=== PATIENT | female | born 1955 | race Two or more races ===

== ENCOUNTER 2025-09-21 21:27 | Emergency (ER) | payer MEDICARE, MEDICAID ==
[~2025-09-21] VITALS: Ht 165.1 cm; Wt 56.0 kg
[2025-09-21 21:40] VITALS: PULSE 85; RESP 16; O2SAT 97
--- NOTE | 2025-09-21 22:03 | DVH ---
CLINICAL INDICATION: FALL TECHNIQUE: 3 views XY R KNEE 3V XRAY Comparison: None FINDINGS: No acute fracture or dislocation. Mild tricompartmental osteoarthrosis. Small distal quadriceps enth esophyte. No evident joint effusion. Unremarkable soft tissues. IMPRESSION: 1. No acute osseous abnormality of the right knee.
--- NOTE | 2025-09-21 22:07 | DVH ---
CLINICAL HISTORY: FALL TECHNIQUE: Helical scanning was performed of the head from the skull base to the vertex. Multiplanar reconstructions were performed. This exam was performed according to our departmental dose optimizat ion program. Up-to-date CT equipment and radiation dose reduction techniques are utilized as appropri ate. CTDI 10.5 DLP 250 COMPARISON: None FINDINGS: There is no evidence for acute intracranial hemorrhage, acute ischemic changes, or mass. There is no hydrocephalus. There is no effacement of the cerebral sulci and basal subarachnoid cisterns. The solis -white matter differentiation is well maintained. There is a small to moderate size mixed density subdural hematoma along right cerebral convexity, anthony suring up to 10 mm thickness on coronal images. There is a 2 mm subdural hematoma along the left cere bral convexity. There is trace subarachnoid hemorrhage of the right frontoparietal junction, best see n on image 36 series 2. There is no significant midline shift. The imaged paranasal sinuses are clear. There are diffuse sclerotic lesions. There are a few scattere d nonspecific parenchymal calcifications. IMPRESSION: Small to moderate right and miniscule left cerebral convexity subdural hematomas. No significant midl ine shift. Trace right frontoparietal junction subarachnoid hemorrhage. Diffuse sclerotic lesions, suspect osseous metastatic disease. FINDINGS AND INTERPRETATION DISCUSSED WITH DR ALVAREZ AT DATE AND TIME 09/21/2025 10:02 PM
[2025-09-21] MEDS: MANNITOL 20% SOLN 100 gm/500ml 350 ML IV ONE (22:15)
[2025-09-21] MEDS: LABETALOL HCL 20 MG/4 ML VL IV PRN (22:17)
--- NOTE | 2025-09-21 22:25 | DVH ---
EXAM: CT CERVICAL WITHOUT CONTRAST HISTORY: FALL COMPARISON: None CTDIvol 49 mGy, DLP 947 mGy*cm. TECHNIQUE: Multiple axial CT images of the spine were obtained using bone algorithm. Axial and mederos l reformatting was done. Bone and soft tissue windows were reviewed. FINDINGS: No evidence of vertebral fracture or compresison deformity. Essentially diffuse heterogeneous sclerosis throughout all imaged osseous structures. Normal alignmen t of the craniocervical junction with mild degenerative change. Straightening of normal lordotic curv ature with [id number] multilevel spondylosis most pronounced at C5-C6. No acute finding of the imaged neck soft tissues. Numerous reticulonodular opacities throughout the i mike lung apices. No obvious lymphadenopathy. Partially imaged right IJ catheter/chest port. IMPRESSION: 1. No acute finding of the cervical spine. 2. Extensive osseous and probable pulmonary metastatic disease.
[2025-09-21] MEDS: levETIRAcetam 1000 mg/100ml 100 ML IV ONE (22:26)
[2025-09-21 22:37] LABS: Base Excess -0.9 mmol/L (-2.0-3.0)
[2025-09-21 22:40] VITALS: PULSE 85
--- NOTE | 2025-09-21 22:50 | ED.PDOC ---
History of Present Illness HPI Comments 70 y/o F is khjorqr-[id number] relative for c/c of right, frontal headache and right forearm and knee bruising s/p mechanical fall and injury. Per relative, patient is reported to have sustained an unwitnessed fall injury at 2049, this evening. Patient was found sitting on the floor c/o symptoms after being suspected on tripping on an object and falling forward and injuring her head and forearm and knee when walking into another room at home. Patient did not lose consciousness but was unable to walk or recall events then. No reported history of previous injuries or current blood thinner use aside from occasional low dose ASA use. Additional significant history of advanced metastatic brain cancer, arthritis, Alzheimer's dementia, diabetes with neuropathy, fibromyalgia, and thrombocytopenia. Patient is also reported to have, recently, moved to area from [place], [place], where she usually receive treatment for her cancer at local hospital facility there. Last imaging study for metastatic brain cancer was reported to have been been a month ago, with show cancer advancing. Patient denies any further acute injuries or symptoms at this time. REVIEW OF SYSTEMS: General: No fever, no chills, or fatigue HEENT: No sore throat, no earache, no congestion, no neck pain. Cardiac: No chest pain. No palpitations. Lungs: No shortness of breath, no cough. GI: No nausea, no vomiting, no diarrhea, no constipation, no abdominal pain : No dysuria, frequency, or urgency. No hematuria. Musculoskeletal: No joint pain , no joint swelling, no extremity edema. Skin: Bruising to right forearm and knee. No rash, no itching. Neuro: Headache, no dizziness, no weakness PHYSICAL EXAM: General: Awake, alert and oriented. No acute distress. Skin: Skin in warm, dry and intact. Appropriate color for ethnicity. HEENT: The head is normocephalic and atraumatic. Conjunctivae are clear without exudates or hemorrhage. Sclera is non-icteric. EOM are intact. PERRLA. No signs of nystagmus. Eyelids are normal in appearance without swelling or lesions. Oral mucosa is pink and moist Neck: The neck is supple with normal range of motion. No JVD. Cardiac: Heart rate and rhythm are normal. No murmurs, gallops, or rubs are auscultated. Respiratory: No signs of respiratory distress. Lung sounds are clear in all lobes bilaterally without rales, rhonchi, or wheezes. Abdominal: Abdomen is soft, non-tender without distention, guarding or rigidity. Bowel sounds are present and normoactive in all four quadrants. Extremities: Upper and lower extremities are atraumatic in appearance without deformity or edema. Neurological: The patient is awake, alert and oriented to person, place, and time with normal speech. Speech is clear. There is no facial asymmetry. Strength sensations are intact, bilaterally. Psychiatric: Appropriate mood and affect. Good judgement and insight. Chief Complaint: Fall Injury Time Seen by MD: 22:00 Reviewed Notes: Nurses Notes, Medications, Allergies Allergies: Coded Allergies: NSAIDs (Verified Allergy, Unknown, 09/21/25) Information Source: Patient, Relative Mode of Arrival: Wheelchair Severity: Moderate Timing: Hours Duration: Since onset Prehospital treatment: None Past Medical History PAST MEDICAL HISTORY: Arthritis, Cancer (Metastatic brain cancer), Dementia (Alzheimer's), DM (With neuropathy) Past Medical History (Other): Fibromyalgia Thrombocytopenia Surgical History: Denies all surgeries Family History Family History: Unknown Social History Smoker: Non-Smoker Alcohol: Denies ETOH Use Drugs: Denies Drug Use Lives In: Home Was a procedure done? Was a procedure done?: No Differential Dx Considerations may include: Differential diagnoses considered include but are not limited to temporal arteritis, acute angle closure glaucoma, encephalitis, bacterial meningitis, carbon monoxide poisoning, posttraumatic headache, SAH, subdural hematoma, cervical artery dissection, venous sinus thrombosis, CVA, migraine headache, cluster headache, tension headache, TMJ disorder, frontal sinusitis, cervical spondylosis, intracranial mass, pituitary apoplexy. X-Ray, Labs, Meds, VS Vital Signs Date Time Temp Pulse Resp B/P (MAP) Pulse Ox O2 Delivery O2 Flow Rate FiO2 09/21/25 23:22 98.2 85 13 118/76 (90) 95 98.2 09/21/25 22:40 85 Room Air* 0 21 09/21/25 21:40 98.1 82 16 113/47 (69) 96 98.1 09/21/25 21:40 85 16 97 Room Air* 0 21 09/21/25 21:30 98.3 18 16 138/87 98 98.3 Lab Test 09/21/25 22:40 09/21/25 22:32 Range/Units POC Glucose 162 H 70-106 mg/dl Blood Gas Specimen Type Arterial Blood Gas Sample Site Right radial Blood Gas Patient Temperature 37.0 Arterial Blood Date Drawn [id number] Arterial Blood pH 7.430 7.350-7.450 Arterial Blood Partial Pressure CO2 35.3 32.0-45.0 mmHg Arterial Blood Partial Pressure O2 66.6 L 83.0-108.0 mmHg Arterial Blood HCO3 22.9 21.0-28.0 mmol/L Arterial Blood Oxygen Saturation 91.9 L 94.0-98.0 % Arterial Blood Base Excess -0.9 -2.0-3.0 mmol/L Arterial Blood Oxyhemoglobin 91.0 L 94.0-98.0 % Arterial Blood Carboxyhemoglobin 0.6 0.5-1.5 % Arterial Blood Methemoglobin 0.4 0.0-1.5 % Fabián Test Yes Blood Gas Total Hemoglobin 12.90 12.0-16.0 g/dL Blood Gas Modality Room air FiO2 % 21.0 Current Medications Medications (Trade) Dose Ordered Sig/Fredy Route Start Time Stop Time Status Last Admin Levetiracetam 100 ml @ 400 mls/hr ONCE ONCE IV 09/21/25 22:15 09/21/25 22:29 DC 09/21/25 22:26 Acetaminophen (Ofirmev) 1,000 mg ONCE ONCE IV 09/21/25 23:00 09/21/25 23:02 DC 09/21/25 23:04 [place] [address] Ph: [phone] DIAGNOSTIC IMAGING Diagnostic Imaging Report : [id number] Signed PATIENT: COURTNEY CASTILLO ACCT: [id number] UNIT: [id number] : 1955 LOC: ER ROOM / BED: / AGE / SEX: 70 / F ADM STATUS: REG ER SERVICE 41 ORDERING PHYSICIAN: ER PROCEDURE(s): CS2 - CERVICAL WITHOUT CONTRAST REASON: FALL ORDER NUMBER(s): [id number], ACCESSION NUMBER(s): [id number] EXAM: CT CERVICAL WITHOUT CONTRAST HISTORY: FALL COMPARISON: None CTDIvol 49 mGy, DLP 947 mGy*cm. TECHNIQUE: Multiple axial CT images of the spine were obtained using bone algorithm. Axial and coronal reformatting was done. Bone and soft tissue windows were reviewed. FINDINGS: No evidence of vertebral fracture or compresison deformity. Essentially diffuse heterogeneous sclerosis throughout all imaged osseous structures. Normal alignment of the craniocervical junction with mild degenerative change. Straightening of normal lordotic curvature with tbkk-li-aupmyjaa multilevel spondylosis most pronounced at C5-C6. No acute finding of the imaged neck soft tissues. Numerous reticulonodular opacities throughout the imaged lung apices. No obvious lymphadenopathy. Partially imaged right IJ catheter/chest port. IMPRESSION: 1. No acute finding of the cervical spine. 2. Extensive osseous and probable pulmonary metastatic disease. ATED BY: GIANNA CARDENAS MD DICTATED DATE/TIME: 09/21/252222 SIGNED BY: GIANNA CARDENAS MD SIGNED DATE/TIME: 09/21/252222 CC: [place] [address] Ph: [phone] DIAGNOSTIC IMAGING Diagnostic Imaging Report : [id number] Signed PATIENT: COURTNEY CASTILLO ACCT: [id number] UNIT: [id number] : 1955 LOC: ER ROOM / BED: / AGE / SEX: 70 / F ADM STATUS: REG ER SERVICE 36 ORDERING PHYSICIAN: STACEY ALVAREZ MD PROCEDURE(s): RKN3 - R KNEE 3V XRAY REASON: FALL ORDER NUMBER(s): [id number], ACCESSION NUMBER(s): [id number] CLINICAL INDICATION: FALL TECHNIQUE: 3 views XY R KNEE 3V XRAY Comparison: None FINDINGS: No acute fracture or dislocation. Mild tricompartmental osteoarthrosis. Small distal quadriceps enthesophyte. No evident joint effusion. Unremarkable soft tissues. IMPRESSION: 1. No acute osseous abnormality of the right knee. ATED BY: GIANNA CARDENAS MD DICTATED DATE/TIME: 09/21/252200 SIGNED BY: GIANNA CARDENAS MD SIGNED DATE/TIME: 09/21/252200 CC: [address] - [id number] Ph: [phone] DIAGNOSTIC IMAGING Diagnostic Imaging Report : [id number] Signed PATIENT: COURTNEY CASTILLO ACCT: [id number] UNIT: [id number] : 1955 LOC: ER ROOM / BED: / AGE / SEX: 70 / F ADM STATUS: REG ER SERVICE 36 ORDERING PHYSICIAN: STACEY ALVAREZ MD PROCEDURE(s): HWOCT - HEAD WITHOUT CONTRAST REASON: FALL ORDER NUMBER(s): [id number], ACCESSION NUMBER(s): [id number] CLINICAL HISTORY: FALL TECHNIQUE: Helical scanning was performed of the head from the skull base to the vertex. Multiplanar reconstructions were performed. This exam was performed according to our departmental dose optimization program. Up-to-date CT equipment and radiation dose reduction techniques are utilized as appropriate. CTDI 10.5 DLP 250 COMPARISON: None FINDINGS: There is no evidence for acute intracranial hemorrhage, acute ischemic changes, or mass. There is no hydrocephalus. There is no effacement of the cerebral sulci and basal subarachnoid cisterns. The solis-white matter differentiation is well maintained. There is a small to moderate size mixed density subdural hematoma along right cerebral convexity, measuring up to 10 mm thickness on coronal images. There is a 2 mm subdural hematoma along the left cerebral convexity. There is trace subarachnoid hemorrhage of the right frontoparietal junction, best seen on image 36 series 2. There is no significant midline shift. The imaged paranasal sinuses are clear. There are diffuse sclerotic lesions. There are a few scattered nonspecific parenchymal calcifications. IMPRESSION: Small to moderate right and miniscule left cerebral convexity subdural hematomas. No significant midline shift. Trace right frontoparietal junction subarachnoid hemorrhage. Diffuse sclerotic lesions, suspect osseous metastatic disease. FINDINGS AND INTERPRETATION DISCUSSED WITH DR ALVAREZ AT DATE AND TIME 09/21/2025 10:02 PM ATED BY: CHIVO FERGUSON MD DICTATED DATE/TIME: 09/21/252204 SIGNED BY: CHIVO FERGUSON MD SIGNED DATE/TIME: 09/21/252204 CC: Time of 1ST Reevaluation: 22:30 Reevaluation 1ST: Unchanged Patient Education/Counseling: Treatment, Other (need for transfer.) Family Education/Counseling: Treatment, Other (need for transfer.) SEPSIS Sepsis Screen Date sepsis recognized/suspect: Sep 21, 2025 Time Sepsis recognized/suspect: 2139 Recent Procedure: No On Antibiotic Therapy: No Respiratory Rate >20: No Heart Rate >90: No Temp<36 C (96.8 F) or >38.3 C: No SBP <90 or MAP <65 mmHG: No New Acute Mental Status Change: Yes Is the patient on CPAP, BIPAP,: No Physician Orders R Knee 3v Xray (09/21/25 21:37) Cervical Without Contrast (09/21/25 21:42) Head Without Contrast (09/21/25:37) [place] [facility] Consult (09/21/25 22:05) * Neurology Consult (09/21/25 22:05) [place] [facility] Consult (09/21/25 22:05) 2 Large Bore Ivs (20mg Or Larg (09/21/25 22:05) Continuous Pulse Oximetry (09/21/25 22:05) Neuro Checks Q2hrs Q1HR (09/21/25 22:05) Bed Rest With Hob At 30-45 Deg (09/21/25 22:05) Abg W/ Co-Ox (09/21/25 22:05) Drug Screen (09/21/25 22:05) Npo (Nothing By Mouth) Diet (09/22/25 Breakfast) Seizure Precautions (09/21/25 ) Fall Precautions Initiated (09/21/25 22:05) Imaging Transfer Request (09/21/25 22:21) Complete Blood Count (09/21/25 23:30) Basic Metabolic Panel (09/21/25 23:30) Vital Signs Date Time Temp Pulse Resp B/P (MAP) Pulse Ox O2 Delivery O2 Flow Rate FiO2 09/21/25 23:22 98.2 85 13 118/76 (90) 95 98.2 09/21/25 22:40 85 Room Air* 0 21 09/21/25 21:40 98.1 82 16 113/47 (69) 96 98.1 09/21/25 21:40 85 16 97 Room Air* 0 21 09/21/25 21:30 98.3 18 16 138/87 98 98.3 Medications Medications Dose Ordered Sig/Fredy Route Start Time Stop Time Status Last Admin Dose Admin Acetaminophen 1,000 mg ONCE ONCE IV 09/21/25 23:00 09/21/25 23:02 DC 09/21/25 23:04 Levetiracetam 100 ml @ 400 mls/hr ONCE ONCE IV 09/21/25 22:15 09/21/25 22:29 DC 09/21/25 22:26 Departure 1 Departure Time of Disposition: 23:35 Impression: Primary Impression: Subdural hematoma Additional Impression: Head injury Disposition: HOME / SELF CARE / HOMELESS Condition: Stable Comments MDM: 70 female presented to the ED after head injury. CT head showed R subdural hematoma, small L subdural hematoma. Patient neurologically intact during the ED observation. Lab studies were ordered however they were cancelled by laboratory without communication with this provider regarding the cancellation. Patient was transferred to [facility] for neurosurgery services. Discussed with Dr. Martins, who accepted patient for transfer. Extensive evaluation was performed in attempt to identify or rule out: (See differential diagnosis section) The following tests were ordered, and results were reviewed by me and discussed with patient: (See diagnostic results section) I reviewed and agreed with the following test results read by other providers: Head and cervical spine CT and right knee x-ray I reviewed the following notes from the pt's past medical encounters: N/A Additional information was gathered from interviewing the following independent historians: Relatives Discussion of management or test interpretation with external physician/other qualified health live in caregiver: N/A Decision regarding hospitalization or escalation of hospital level of care: Risk and benefits of admission for further treatment of patient's condition was considered. Due to patient's current clinical condition, high risk of decline and poor outcome if discharged and need for further inpatient management and monitoring, patient will be admitted to the hospital. Critical Care Note Critical Care Time?: Yes (35 min-critical care time only) Critical care comment: Due to a high probability of clinically significant, life threatening deterioration, the patient required my highest level of preparedness to intervene emergently and I personally spent this critical care time directly and personally managing the patient. This critical care time included obtaining a history; examining the patient; pulse oximetry; ordering and review of studies; arranging urgent treatment with development of a management plan; evaluation of patient's response to treatment; frequent reassessment; and, discussions with other providers. This critical care time was performed to assess and manage the high probability of imminent, life-threatening deterioration that could result in multi-organ failure. It was exclusive of separately billable procedures and treating other patients and teaching time. Please see my other sections and the rest of the note for further information on patient assessment and treatment. Stability Stability form required: No Heart Score Heart Score: Heart Score Response (Comments) Value History N/A 0 EKG N/A 0 Age N/A 0 Risk Factors N/A 0 Troponin N/A 0 Total 0 I personally scribed for STACEY ALVAREZ MD ([email or web address]) on 09/21/25 at 22:50. Electronically submitted by Casper Monreal ([email or web address]). STACEY ALVAREZ MD Sep 21, 2025 22:50
[2025-09-21] MEDS: ACETAMINOPHEN IV 1000 MG/100ML (10MG/ML) IV ONE (23:04)
[2025-09-21 23:22] VITALS: BP 118/76; PULSE 85; RESP 13; TEMP 98.2; O2SAT 95
== END 2025-09-21 23:34 | disposition short-term general hospital (02) ==
LOC: ER 21:27
DX: S06.5X0A Traumatic subdural hemorrhage without loss of consciousness, initial encounter (principal); E11.40 Type 2 diabetes mellitus with diabetic neuropathy, unspecified; M19.90 Unspecified osteoarthritis, unspecified site; Z88.6 Allergy status to analgesic agent; W18.39XA Other fall on same level, initial encounter; Y93.01 Activity, walking, marching and hiking; Y92.89 Other specified places as the place of occurrence of the external cause; Y99.8 Other external cause status
CPT/HCPCS: 36600; 70450; 72125; 73562; 82805; 82947; 96374; 96375; 99285; J1953; 82962; J0131